=== PATIENT | male | born 1995 | race Caucasian/White ===

== ENCOUNTER 2024-12-25 03:05 | Emergency (ER) | payer SELFPAY ==
[2024-12-25 03:09] VITALS: BP 130/87; PULSE 86; RESP 16; TEMP 37; O2SAT 98
--- NOTE | 2024-12-25 03:32 | W.ED.GENAD ---
Discharge Plan Disposition Patient Disposition: [facility] Condition: Stable Discharge Details Clinical Impression: Alcohol intoxication Primary Care Provider: Unknown,Unknown ED Provider: Clarence Stelee Discharge Instructions Instructions: Alcohol Intoxication ED Additional Instructions: Continue current medications once you are released from custody today. You can always return to the ER for any new concerns or sudden changes in your health which you feel require emergent medical intervention. Discharge Data Discharge Physician: Clarence Steele HPI General Date/Time Provider Initiated Documentation: 12/25/24 03:09. HPI Narrative: The patient is a 29-year-old male, who presents emergency department this evening in custody of the state police after he was caught [place] [address] and was positive for breathalyzer at 110 mg/dL. The patient requested to come to the emergency room because he was recently released from detox after being sober for 14 days and was concerned that he would have alcohol withdrawal seizures. The patient reports no symptoms at this time. The patient has multiple medications at his mother's house that he has not taken this evening. The police detective reports that the patient will be discharged from custody once he is sober and can be arraigned at a later date. Related Data Allergies Allergy/AdvReac Type Severity Reaction Status Date / Time No Known Allergies Allergy Verified 12/25/24 03:15 General Stated Complaint: ETOHWithdr MARTINA: 4 Exam Const General: cooperative, comfortable and no acute distress Other: Alcoholic halitosis Resp Effort & Inspection: normal respiratory effort Auscultation: clear to auscultation bilaterally Cardio Rate: regular rate Rhythm: regular rhythm Heart Sounds: S1 normal and S2 normal GI Inspection: normal to inspection Palpation: soft Auscultation: normal bowel sounds Neuro General: patient alert, patient awake, patient oriented x3, gait normal, moves all extremities, normal light touch, pain and propioception and no focal motor deficits Course Vital Signs Vital signs: Vital Signs Temperature 37 C 12/25/24 03:09 Pulse 86 12/25/24 03:09 Respiratory Rate 16 12/25/24 03:09 Blood Pressure 130/87 12/25/24 03:09 Pulse Oximetry 98 12/25/24 03:09 Temperature 37 C 12/25/24 03:09 Temperature Source Temporal Artery Scan 12/25/24 03:09 Pulse 86 12/25/24 03:09 Respiratory Rate 16 12/25/24 03:09 Blood Pressure 130/87 12/25/24 03:09 Blood Pressure Position Sitting 12/25/24 03:09 Pulse Oximetry 98 12/25/24 03:09 Oxygen Delivery Method Room Air 12/25/24 03:09 Oxygen Flow Rate 0 12/25/24 03:09 Pain Level 9 12/25/24 03:09 Medical Decision Making The patient was seen and examined. He is in no distress and has normal vital signs here in the emergency room. The patient is not exhibiting any withdrawal symptoms and has been sober for 14 days before drinking tonight. The patient does not appear to be ill or having any issues. The patient will be released from custody within the next 3 to 4 hours as he will be sober at that time and be arranged a later date. The patient can return to his mother's house and begin his medications again, as previously prescribed. There is an infirmary onsite at the [facility] so that the patient can be evaluated by nursing today and seizure-like effect in the interval. PFSH All Active Problems (Updated 12/25/24 @ 03:33 by Clarence Steele MD) Alcohol intoxication (Acute) Social History Smoking risk assessment performed?: No Alcohol Intake: current Drug use: Daily Substance use type: crack/cocaine Details: last used crack about 2 weeks ago 12/25/24 was drinking 1/2 gallon captain daily until he went to rehab 2 weeks ago 12/25/24 PAWSS Have you Been Recently Intoxicated or Drunk Within the Last 30 days?: Yes Have you Ever Experienced Previous Episodes of Alcohol Withdrawal?: Yes Have you ever Experienced Withdrawal Seizures?: Yes Have you ever Experienced Delirium Tremens(DT)s?: Yes Have you ever undergone Alcohol Rehabilitation Treatment (i.e, inpt ot outpatient treatment programs)?: Yes Have you ever Experienced Blackouts?: Yes Have you ever Combined Alcohol with other Downers within the last 90 days?: Yes Have you ever Combined Alcohol with any other Substance of Abuse during the last 90 days?: Yes Positive Blood Alcohol level on Presentation? [PCS.BAL]: Yes Evidence of Increased Autonomic Activity (i.e. HR>120, tremor, sweating, agitation, nausea)?: Yes Result: 10
== END 2024-12-25 03:36 ==
LOC: ER 03:40
PROVIDERS: Emergency Provider Emergency Medicine Emergency Medical Services
DX: F10.920 Alcohol use, unspecified with intoxication, uncomplicated (principal)
CPT/HCPCS: 99283; 99285